=== PATIENT | male | born 1945 | race Caucasian/White ===

== ENCOUNTER 2018-01-15 07:57 | Day surgery (SDC) ==
[2018-01-15] MEDS: TETRACAINE 0.5% UNIT-DOSE OP PRN ×2 (08:55→09:33)
[2018-01-15] MEDS: CYCLOGYL 2% OPTH OP PRN ×3 (08:55→09:05)
[2018-01-15] MEDS: BETADINE OPTH PREP OP PRN ×2 (08:55→09:33)
[2018-01-15] MEDS ORDERED: BRIMONIDINE TARTRATE 0.2% OPTH SOL OP PRN (09:04)
[2018-01-15] MEDS ORDERED: BSS WITH EPINEPHRINE OP ONE (09:04)
[2018-01-15] MEDS ORDERED: DEX-MOXI-KETOR OPTH INJ 1/0.5/0.4 MG/ML IO ONE (09:04)
[2018-01-15] MEDS ORDERED: LIDOCAINE 1%/PHENYLEPHRINE 1.5% BSS (SURGERY) INTRAOCULA ONE (09:04)
[2018-01-15] MEDS ORDERED: ZOFRAN 4 MG/2 ML IVP ONE (09:04)
[2018-01-15] MEDS ORDERED: LIDOCAINE 1% 20 ML MDV ID STA (09:04)
[2018-01-15] MEDS ORDERED: SUBLIMAZE ONE (09:50)
[2018-01-15] MEDS ORDERED: VERSED ONE (09:50)
[2018-01-17 14:40] VITALS: BP 141/67
== END 2018-01-15 10:30 | disposition home or self-care (01) ==
LOC: SURG 07:57
PROVIDERS: ATTEND Ophthalmology
DX: H25.812 Combined forms of age-related cataract, left eye (principal)

== ENCOUNTER 2018-02-05 07:07 | Day surgery (SDC) ==
[2018-02-05] MEDS ORDERED: LIDOCAINE 1% 20 ML MDV ID STA (07:52)
[2018-02-05] MEDS ORDERED: ZOFRAN 4 MG/2 ML IVP ONE (07:52)
[2018-02-05] MEDS ORDERED: DEX-MOXI-KETOR OPTH INJ 1/0.5/0.4 MG/ML IO ONE (07:52)
[2018-02-05] MEDS ORDERED: BRIMONIDINE TARTRATE 0.2% OPTH SOL OP PRN (07:52)
[2018-02-05] MEDS ORDERED: BSS WITH EPINEPHRINE OP ONE (07:52)
[2018-02-05] MEDS ORDERED: LIDOCAINE 1%/PHENYLEPHRINE 1.5% BSS (SURGERY) INTRAOCULA ONE (07:52)
[2018-02-05] MEDS: TETRACAINE 0.5% UNIT-DOSE OP PRN ×2 (07:53→08:45)
[2018-02-05] MEDS: BETADINE OPTH PREP OP PRN ×2 (07:53→08:30)
[2018-02-05] MEDS: CYCLOGYL 2% OPTH OP PRN ×3 (07:54→08:04)
[2018-02-05] MEDS ORDERED: VERSED ONE (08:33)
[2018-02-05] MEDS ORDERED: SUBLIMAZE ONE (08:33)
[2018-02-05 12:12] VITALS: TEMP 97.3
[2018-02-10 07:31] VITALS: BP 126/67
== END 2018-02-05 09:28 | disposition home or self-care (01) ==
LOC: SURG 07:07
PROVIDERS: ATTEND Ophthalmology
DX: H25.811 Combined forms of age-related cataract, right eye (principal)